=== PATIENT | male | born 1975 | race Caucasian/White ===

== ENCOUNTER 2018-02-04 18:08 | Inpatient (IN) | payer OTHER ==
[~2018-02-04] VITALS: Ht 167.6 cm; Wt 82.6 kg
[~2018-02-04 18:08] MED LIST: Z.0.RESTORIL30 MG PO
[2018-02-04] MEDS ORDERED: MORPHINE SULFATE 4 MG/ML SYR IV STA (18:32)
[2018-02-04] MEDS ORDERED: SODIUM CHLORIDE 0.9% 1000ML 1,000 ML IV STA (18:32)
[2018-02-04] MEDS ORDERED: PROMETHAZINE HCL (IM) 25 MG/ML VIAL IV STA (18:32)
[2018-02-04] MEDS ORDERED: DIATRIZOATE MEGL/DIATRIZOA SOD 30 ML BTL PO ONE (18:36)
[2018-02-04] MEDS ORDERED: PIPER-TAZ 3.375 GM 50 ML IV ONE (18:45)
[2018-02-04 18:49] LABS: BASOPHILS % 0.3 % (0.0-1.0); EOSINOPHILS % 0.2 % (0.0-6.0); HEMATOCRIT 45.6 % (38.2-49.6); HEMOGLOBIN 15.8 g/dL (14.0-18.0); LYMPHOCYTES # (AUTO) 1.4 (1.0-3.2); LYMPHOCYTES % 11.6 % (18.0-39.1); MEAN CORPUSCULAR HEMOGLOBIN 30.9 pg (28-32); MEAN CORPUSCULAR HGB CONC 34.6 g/dL (31-35); MEAN CORPUSCULAR VOLUME 89.2 fL (81-99); MONOCYTES # (AUTO) 0.7 (0.2-0.8); NEUTROPHILS # (AUTO) 9.8 (2.1-6.9); NEUTROPHILS % 81.6 % (38.7-80.0); PLATELET COUNT 191 x10e3/uL (140-360); RED BLOOD COUNT 5.11 x10e6/uL (4.3-5.7); RED CELL DISTRIBUTION WIDTH 12.8 % (11.7-14.4)
[2018-02-04 19:01] LABS: ALANINE AMINOTRANSFERASE 37 IU/L (0-55); ALBUMIN/GLOBULIN RATIO 1.3 (0.8-2.0); ALKALINE PHOSPHATASE 77 IU/L (40-150); ANION GAP 13.9 mmol/L (8-16); BLOOD UREA NITROGEN 12 mg/dL (7-26); BUN/CREATININE RATIO 12 (6-25); CALCIUM 9.5 mg/dL (8.4-10.2); CARBON DIOXIDE 26 mmol/L (22-29); CHLORIDE 101 mmol/L (98-107); CREATININE, SERUM 0.97 mg/dL (0.72-1.25); EST GLOMERULAR FILTRATION RATE > 60 ML/MIN (60-); GLUCOSE 117 mg/dL (74-118); LIPASE 29 U/L (8-78); POTASSIUM 3.9 mmol/L (3.5-5.1); SODIUM 137 mmol/L (136-145)
[2018-02-04 19:38] LABS: BILIRUBIN,URINE 1+ (NEGATIVE); CLARITY,URINE CLEAR (CLEAR); COLOR,URINE YELLOW (YELLOW); KETONES,URINE TRACE (NEGATIVE); LEUKOCYTE ESTERASE ,URINE NEGATIVE (NEGATIVE); NITRITE,URINE NEGATIVE (NEGATIVE); PROTEIN,URINE DIPSTICK NEGATIVE (NEGATIVE); URINE UROBILINOGEN 0.2 mg/dL (0.2 - 1)
[2018-02-04 19:46] LABS: BACTERIA,URINE RARE /HPF; EPITHELIAL CELLS,URINE FEW /LPF; MUCUS,URINE FEW (RARE); RBC,URINE 0-5 /HPF (0-5); WBC,URINE (MAN) 0-5 /HPF (0-5)
--- NOTE | 2018-02-04 19:59 | Diagnostic Imaging Report ---
EXAM: CT Abdomen and Pelvis WITH contrast INDICATION: \S\r/o appy \[id number] \S\1920 COMPARISON: Abdominal CT 08/07/2011. TECHNIQUE: Abdomen and pelvis were scanned utilizing a multidetector helical scanner from the lung base to the pubic symphysis after administration of IV contrast. Coronal and sagittal reformations were obtained. Routine protocol was performed. Scan was performed when during portal venous phase. IV CONTRAST: 100 mL of Omnipaque 300 ORAL CONTRAST: Water COMPLICATIONS: None RADIATION DOSE: Total DLP: 781.64 mGy*cm Estimated effective dose: (DLP x 0.015 x size factor) mSv CTDIvol has been reviewed. It is below the limits set by the Radiation Protocol Committee (RPC). FINDINGS: LINES and TUBES: None.and LOWER THORAX: Filling defects in right lower lobe and right middle lobe, segmental and subsegmental. HEPATOBILIARY: The liver is diffuse hypodense compared to the spleen, consistent with diffuse hepatic diffuse hepatic steatosis. No focal hepatic lesions. No biliary ductal dilation. GALLBLADDER: No radio-opaque stones or sludge. No wall thickening. SPLEEN: No splenomegaly. PANCREAS: No focal masses or ductal dilatation. ADRENALS: No adrenal nodules KIDNEYS/URETERS: Kidneys enhance symmetrically. No hydronephrosis. No cystic or solid mass lesions. No stones. GI TRACT: Circumferential wall thickening and pericolonic/peridiverticular stranding along the sigmoid colon. Punctate focus of air outside a diverticula (series 2 image 71) concerning for microperforation. No brian free air. No abscess. Numerous descending and sigmoid colonic diverticula. No abnormal distention, additional wall thickening, or evidence of bowel obstruction. Appendix is normal. PELVIC ORGANS/BLADDER: Persistent 2.2 cm midline cyst in the region of the seminal vesicles and prostate mid gland/base may represent a Mullerian duct cyst or prostatic utricle cyst. LYMPH NODES: No lymphadenopathy. VESSELS: There is mild atherosclerotic disease in the aorta and major arterial branches. PERITONEUM / RETROPERITONEUM: No free air or fluid. BONES: There are degenerative changes in the lumbar spine, worse at L5-S1. SOFT TISSUES: Fat-containing left inguinal hernia. IMPRESSION: 1. Acute sigmoid colonic diverticulitis. A punctate extraluminal focus of air is concerning for microperforation. No brian free air or abscess. 2. Right middle and lower lobe pulmonary emboli. Consider chest CT to evaluate extent of clot. 3. Hepatic steatosis. Acute findings discussed with Anibal Golden NP, on 02/04/2018 at 7:45 pm. Signed by: DR. Abimael Barrett MD on 02/04/2018 7:55 PM
[2018-02-04] MEDS ORDERED: PROMETHAZINE HCL (IM) 25 MG/ML VIAL IV PRN (20:00)
[2018-02-04] MEDS ORDERED: LEVOFLOXACIN 500MG/D5W 100ML IV SCH (20:00)
[2018-02-04] MEDS ORDERED: CIPROFLOXACIN 400 MG/D5W 200ML 200 ML IV SCH (20:00)
[2018-02-04] MEDS ORDERED: IOPAMIDOL 300MG/ML 100 ML INFUS..BTL IV ONE (20:23)
[2018-02-04] MEDS ORDERED: IOPAMIDOL 370 MG/ML 200 ML INFUS..BTL INJ ONE (20:23)
[2018-02-04] MEDS ORDERED: SODIUM CHLORIDE 0.9% 50ML 50 ML ONE (20:23)
--- OUTSIDE RECORDS SUMMARY | 2018-02-04 20:59 | XMS REPORT ---
Author Author [facility] Address Unknown Phone Unavailable Care Team Providers Care Monument Erector Name Role Phone NATHALIE LEY Unavailable Unavailable Problems This patient has no known problems. Allergies, Adverse Reactions, Alerts This patient has no known allergies or adverse reactions. Medications This patient has no known medications. Results Test Description Test Time Test Comments Text Results Atomic Results Result Comments CT ABDOMEN/PELVIS W [place] [id number] [place] [id number] Patient Name: HANNAH COLEMAN MR #: [id number] : 1975 Age/Sex: 42/M Req #: [id number] Adm Physician: Ordered by: ANIBAL SINHA KAYAK MAKER Report #: [id number] Location: ER Room/Bed: Procedure: [id number] CT/CT ABDOMEN/PELVIS W Exam Date: 02/04/18 Exam Time: 1920 REPORT STATUS: Signed EXAM: CT Abdomen and Pelvis WITH contrast INDICATION: COMPARISON: Abdominal CT 08/07/2011. TECHNIQUE: Abdomen and pelvis were scanned utilizing a multidetector helical scanner from the lung base to the pubic symphysis after administration of IV contrast. Coronal and sagittal reformations were obtained. Routine protocol was performed. Scan was performed when during portal venous phase. IV CONTRAST: 100 mL of Omnipaque 300 ORAL CONTRAST: Water COMPLICATIONS: None RADIATION DOSE: Total DLP: 781.64 mGy*cm Estimated effective dose: (DLP x 0.015 x size factor) mSv CTDIvol has been reviewed. It is below the limits set by the Radiation Protocol Committee (RPC). FINDINGS: LINES and TUBES : None.and LOWER THORAX: Filling defects in right lower lobe and right middle lobe, segmental and subsegmental. HEPATOBILIARY: The liver is diffuse hypodense compared to the spleen, consistent with diffuse hepatic diffuse hepatic steatosis. No focal hepatic lesions. No biliary ductal dilation. GALLBLADDER: No radio-opaque stones or sludge. No wall thickening. SPLEEN: No splenomegaly. PANCREAS: No focal masses or ductal dilatation. ADRENALS: No adrenal nodules KIDNEYS/URETERS : Kidneys enhance symmetrically. No hydronephrosis. No cystic or solid mass lesions. No stones. GI TRACT: Circumferential wall thickening and pericolonic/peridiverticular stranding along the sigmoid colon. Punctate focus of air outside a diverticula (series 2 image 71) concerning for microperforation. No brian free air. No abscess. Numerous descending and sigmoid colonic diverticula. No abnormal distention, additional wall thickening, or evidence of bowel obstruction. Appendix is normal. PELVIC ORGANS/BLADDER: Persistent 2.2 cm midline cyst in the region of the seminal vesicles and prostate mid gland/base may represent a Mullerian duct cyst or prostatic utricle cyst. LYMPH NODES: No lymphadenopathy. VESSELS: There is mild atherosclerotic disease in the aorta and major arterial branches. PERITONEUM / RETROPERITONEUM: No free air or fluid. BONES : There are degenerative changes in the lumbar spine, worse at L5-S1. SOFT TISSUES: Fat-containing left inguinal hernia. IMPRESSION: 1. Acute sigmoid colonic diverticulitis. A punctate extraluminal focus of air is concerning for microperforation. No brian free air or abscess. 2. Right middle and lower lobe pulmonary emboli. Consider chest CT to evaluate extent of clot. 3. Hepatic steatosis. Acute findings discussed with Anibal Sinha NP, on 02/04/2018 at 7:45 pm. Signed by: DR. Abimael Marshall MD on 02/04/2018 7:55 PM Dictated By: ABIMAEL MARSHALL MD 54 Transcribed By: ARSALAN on 02/04/181954 COPY TO: ANIBAL SINHA NP
[2018-02-05] MEDS ORDERED: ACETAMINOPHEN 325 MG TAB PO ONE (01:30)
[2018-02-05] MEDS ORDERED: MORPHINE SULFATE 4 MG/ML SYR IV STA (01:37)
[2018-02-05] MEDS ORDERED: SODIUM CHLORIDE 0.9% 1000ML 1,000 ML IV STA (01:37)
[2018-02-05] MEDS ORDERED: ONDANSETRON HCL INJ 2 MG/ML VIAL IV STA (01:37)
[2018-02-05] MEDS: LEVOFLOXACIN 500MG/D5W 100ML 100 ML IV SCH ×2 (01:39→20:15)
[2018-02-05] MEDS: ENOXAPARIN INJ 80 MG/0.8 ML SYR SC SCH ×3 (01:39→21:00)
[2018-02-05] MEDS ORDERED: MORPHINE SULFATE 2 MG/ML SYR ONE (02:18)
[2018-02-05] MEDS ORDERED: PIPER-TAZ 3.375 GM 100 ML ONE (02:57)
[2018-02-05] MEDS ORDERED: METRONIDAZOLE 500 MG TAB PO SCH (06:00)
[2018-02-05] MEDS: METRONIDAZOLE 500MG/NS 100ML 100 ML IV SCH ×3 (06:33→18:01)
[2018-02-05] MEDS ORDERED: SODIUM CHLORIDE 0.9% 50ML 0 ML ONE (07:25)
[2018-02-05] MEDS ORDERED: IOPAMIDOL 370 MG/ML 200 ML INFUS..BTL INJ ONE ×3 (07:25→20:29)
[2018-02-05 08:04] LABS: BASOPHILS % 0.3 % (0.0-1.0); EOSINOPHILS # (AUTO) 0.1 (0.0-0.4); EOSINOPHILS % 0.9 % (0.0-6.0); HEMATOCRIT 39.6 % (38.2-49.6); HEMOGLOBIN 13.6 g/dL (14.0-18.0); LYMPHOCYTES % 22.4 % (18.0-39.1); MEAN CORPUSCULAR HEMOGLOBIN 31.3 pg (28-32); MEAN CORPUSCULAR HGB CONC 34.3 g/dL (31-35); MONOCYTES # (AUTO) 0.7 (0.2-0.8); MONOCYTES % 7.5 % (4.4-11.3); NEUTROPHILS % 68.7 % (38.7-80.0); PLATELET COUNT 161 x10e3/uL (140-360); RED BLOOD COUNT 4.35 x10e6/uL (4.3-5.7)
[2018-02-05] MEDS: SODIUM CHLORIDE 0.9% 1000ML 1,000 ML IV SCH ×3 (08:17→23:30)
[2018-02-05 08:26] LABS: ANION GAP 10.4 mmol/L (8-16); BLOOD UREA NITROGEN 10 mg/dL (7-26); BUN/CREATININE RATIO 11 (6-25); CALCIUM 8.4 mg/dL (8.4-10.2); CARBON DIOXIDE 29 mmol/L (22-29); CHLORIDE 105 mmol/L (98-107); EST GLOMERULAR FILTRATION RATE > 60 ML/MIN (60-); GLUCOSE 101 mg/dL (74-118); POTASSIUM 4.4 mmol/L (3.5-5.1); SODIUM 140 mmol/L (136-145)
[2018-02-05] MEDS: ONDANSETRON HCL 4 MG ORAL DISINTEGRATING TAB PO PRN (09:56)
[2018-02-05] MEDS: MORPHINE SULFATE 2 MG/ML SYR IV PRN ×4 (09:56→23:47)
[2018-02-05 15:00] VITALS: BP 135/63
[2018-02-05] MEDS: ACETAMINOPHEN 1000 MG/100 ML IV PRN ×2 (15:00→23:46)
[2018-02-05 16:19] VITALS: BP 135/63
[2018-02-05] MEDS: PROMETHAZINE 12.5MG/ NACL 0.9% 50 ML IV PRN (19:36)
[2018-02-05] MEDS ORDERED: SODIUM CHLORIDE 0.9% 50ML 50 ML ONE (20:28)
[2018-02-05 20:33] VITALS: BP 117/63
--- NOTE | 2018-02-05 21:00 | Diagnostic Imaging Report ---
EXAM: CT Chest WITH contrast 02/05/2018 7:30 PM INDICATION: \S\PE \S\[id number] \S\2005 \S\Y COMPARISON: None TECHNIQUE: Chest was scanned utilizing a multidetector helical scanner from the lung apex through the level of the adrenal glands without administration of IV contrast. Coronal and sagittal reformations were obtained. Pulmonary embolism protocol was performed. IV CONTRAST: 100 mL of Isovue-370 COMPLICATIONS: None RADIATION DOSE: Total DLP: 529.63 mGy*cm Estimated effective dose: (DLP x 0.014 x size factor) mSv CTDIvol has been reviewed. It is below the limits set by the Radiation Protocol Committee (RPC). FINDINGS: LINES/ TUBES: None. LUNGS AND AIRWAYS: Filling defect within right lower lobe pulmonary artery there are also filling defects within segmental branches of the right middle lobe pulmonary artery. Right lower lobe consolidation, probably pulmonary infarct. Airways are normal. PLEURA: The pleural spaces are clear. HEART AND MEDIASTINUM: The thyroid gland is normal. No mediastinal, hilar or axillary lymphadenopathy. The heart is normal in size.. There is no pericardial effusion. Main pulmonary artery measures 3.1 cm, suggestive of pulmonary hypertension. UPPER ABDOMEN: Hepatic steatosis. BONES: The visualized bony thorax is within normal limits. SOFT TISSUES: Unremarkable. IMPRESSION: Pulmonary embolism within segmental right lower and middle lobe pulmonary arteries, extending to the subsegmental branches, especially in the right lower lobe with right lower lobe consolidation, likely pulmonary infarct, although underlying atelectasis or pneumonia cannot be entirely excluded. Findings discussed with Dr. Dianna Hanley at 9:22 PM, on 02/05/2018. Signed by: Dr. Shereen Antonio M.D. on 02/05/2018 9:34 PM
[2018-02-05 23:35] VITALS: BP 124/67
[2018-02-06 04:10] VITALS: BP 120/69
[2018-02-06] MEDS: MORPHINE SULFATE 2 MG/ML SYR IV PRN ×2 (04:32→21:35)
[2018-02-06] MEDS: METRONIDAZOLE 500MG/NS 100ML 100 ML IV SCH ×5 (05:55→23:40)
--- NOTE | 2018-02-06 07:00 | Consultation ---
DATE OF CONSULTATION: February 06, 2018 PULMONARY MEDICINE CONSULT REFERRING PHYSICIAN: Dr. Hanley PRIMARY CARE DOCTOR: Dr. Beach HISTORY: Mr. Crandall is a pleasant 42-year-old gentleman with pulmonary embolism. Patient with history of gastrointestinal problems in the past. He has had nonperforated diverticulitis in the past and was treated with conservative therapy. 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 He is very active and is not sedentary when he is not at work. He is not actively smoking. He is not on any herbal medications. He does vape. Patient had recent increase in right lower quadrant pain. He was seen by stomach specialist, who sent him to emergency room. Patient had CT of abdomen and pelvis demonstrating appearance of right lower quadrant diverticulitis, but there was incidental finding of pulmonary embolism there. He had a dedicated CT angiogram showing segmental right lower and middle lobe pulmonary artery emboli extending into subsegmental branches especially in the right lower lobe with right lower lobe consolidation, likely pulmonary infarct. At this point, I am consulted. Patient has some pain over last day, but he also has some nonspecific shortness of breath over last couple of months. PAST MEDICAL HISTORY: Diverticulitis, otherwise none. MEDICATIONS: None. ALLERGIES: NO KNOWN DRUG ALLERGIES. SOCIAL HISTORY: No drugs. Rare alcohol. He smoked from age 18 to 29, 1-pack per day. He works as a food truck caterer as stated, but he does not do interstate nor intrastate, just local in the city area. FAMILY HISTORY: Noncontributory. There is no known venous thromboses in his family. REVIEW OF SYSTEMS: GENERAL: No weight changes. OPHTHALMOLOGIC: No double vision. ENT: No dry mouth. ENDOCRINE: No thyroid disease. PULMONARY: There is no asthma. CARDIAC: No heart attacks. IMMUNOLOGIC: There are no allergies. : No blood in urine. MUSCULOSKELETAL: There is minimal arthritis. PSYCHOLOGIC: No depression. NEUROLOGIC: No seizures. OBJECTIVE: VITAL SIGNS: Afebrile at this time, vitals reviewed per electronic record. GENERAL: In no acute distress, in bed, slightly sleepy. HEENT: Normocephalic, atraumatic. NECK: Supple. Throat midline. LUNGS: Bilateral air entry, limited due to right chest pain. CARDIOVASCULAR: S2, S1 present. No murmurs or rubs. ABDOMEN: Soft, mostly nontender in terms of nonsurgical, but some right lower quadrant discomfort. EXTREMITIES: No clubbing, no cyanosis, there is no edema. INTEGUMENT: No rash, no purpura. LABS: 4.4 potassium, 10 BUN, 0.9 creatinine. 9 white count, 39 hematocrit, 161 platelets. IMPRESSION AND PLAN: 1. Acute pulmonary emboli. 2. Possible pulmonary hypertension, pulmonary artery dimension 33 mm per computerized tomography chest. 3. Suspect hypercoagulable disorder of genetic type. 4. Admit for acute diverticulitis. 5. Fevers due to diverticulitis. Check ultrasound of lower extremities. Check thyroid studies and sedimentation rate and thyroid-stimulating hormone level. Oxygen will be given to alleviate pressures in the lungs. Patient has high indication for outpatient sleep studies. Screening can be done for some genetic hypercoagulable states. Patient is recommended to continue the anticoagulation. He is high risk for surgery at this point, but if surgery becomes an emergency, then he will optimally be bridged with heparin and a filter can be placed if he has lower extremity clots. Will follow along closely. Thank you very much, Dr. Beach and Dr. Hanley for allowing me the chance to participate in the care of Mr. Crandall. Do not hesitate to contact me if I could help in any way. Job#: [id number]
[2018-02-06 07:06] LABS: BASOPHILS % 0.4 % (0.0-1.0); EOSINOPHILS % 0.2 % (0.0-6.0); HEMATOCRIT 41.2 % (38.2-49.6); HEMOGLOBIN 14.1 g/dL (14.0-18.0); LYMPHOCYTES # (AUTO) 1.3 (1.0-3.2); LYMPHOCYTES % 12.4 % (18.0-39.1); MEAN CORPUSCULAR HEMOGLOBIN 31.3 pg (28-32); MEAN CORPUSCULAR HGB CONC 34.2 g/dL (31-35); MEAN CORPUSCULAR VOLUME 91.4 fL (81-99); MONOCYTES # (AUTO) 0.7 (0.2-0.8); MONOCYTES % 6.5 % (4.4-11.3); NEUTROPHILS # (AUTO) 8.7 (2.1-6.9); NEUTROPHILS % 80.1 % (38.7-80.0); PLATELET COUNT 170 x10e3/uL (140-360); RED BLOOD COUNT 4.51 x10e6/uL (4.3-5.7); RED CELL DISTRIBUTION WIDTH 12.8 % (11.7-14.4)
[2018-02-06 07:24] LABS: ANION GAP 13.1 mmol/L (8-16); BLOOD UREA NITROGEN 10 mg/dL (7-26); BUN/CREATININE RATIO 13 (6-25); CALCIUM 8.5 mg/dL (8.4-10.2); CARBON DIOXIDE 24 mmol/L (22-29); CHLORIDE 105 mmol/L (98-107); CREATININE, SERUM 0.79 mg/dL (0.72-1.25); EST GLOMERULAR FILTRATION RATE > 60 ML/MIN (60-); GLUCOSE 90 mg/dL (74-118); POTASSIUM 4.1 mmol/L (3.5-5.1); SODIUM 138 mmol/L (136-145)
[2018-02-06 07:25] VITALS: BP 118/72
[2018-02-06] MEDS: SODIUM CHLORIDE 0.9% 1000ML 1,000 ML IV SCH (07:30)
[2018-02-06 07:37] LABS: HIV 1&2 AB SCREEN NON-REACTIVE (NONREACTIVE)
[2018-02-06 07:50] VITALS: BP 118/72
[2018-02-06] MEDS: ENOXAPARIN INJ 80 MG/0.8 ML SYR SC SCH ×2 (08:15→20:12)
[2018-02-06] MEDS ORDERED: KETOROLAC TROMETHAMINE 30 MG/ML VIAL IV PRN (08:15)
[2018-02-06] MEDS: ACETAMINOPHEN 1000 MG/100 ML IV PRN ×3 (10:00→23:46)
[2018-02-06 11:37] VITALS: BP 139/71
[2018-02-06 15:53] VITALS: BP 136/76
[2018-02-06] MEDS: DEXTROSE 5%/0.45% SOD CHL 1,000 ML IV SCH (17:30)
[2018-02-06 20:00] VITALS: BP 130/60
[2018-02-06] MEDS: MEROPENEM 1 GM VIAL IV SCH (21:03)
[2018-02-06] MEDS ORDERED: MEROPENEM 1GRAM 1 GM in SODIUM CHLORIDE 0.9% 100 ML 100 ML IV SCH (22:00)
[2018-02-06] MEDS: ONDANSETRON HCL 4 MG ORAL DISINTEGRATING TAB PO PRN (22:51)
[2018-02-07] VITALS (7 sets, daily range): BP systolic 112–122; BP diastolic 60–72
[2018-02-07] MEDS: DEXTROSE 5%/0.45% SOD CHL 1,000 ML IV SCH ×3 (03:14→21:14)
[2018-02-07] MEDS: MORPHINE SULFATE 2 MG/ML SYR IV PRN ×5 (03:35→23:02)
[2018-02-07] MEDS: SODIUM CHLORIDE 0.9% 1000ML 1,000 ML IV SCH (04:39)
[2018-02-07] MEDS: MEROPENEM 1 GM VIAL IV SCH ×3 (05:26→20:46)
--- NOTE | 2018-02-07 06:42 | Diagnostic Imaging Report ---
EXAM: ABDOMEN ACUTE SERIES W/PA CXR INDICATION: Perforated diverticulitis COMPARISON: CT of the abdomen and pelvis February 04, 2018 FINDINGS: LINES/TUBES: None LUNGS: Right lower lobe consolidation, likely pulmonary infarct seen on prior CT. Subsegmental atelectasis left lower lobe. PLEURA: No effusions or pneumothorax. HEART AND MEDIASTINUM: Normal size and contour. BOWEL PATTERN: Non-obstructed bowel gas pattern. Oral contrast seen throughout the large bowel to the rectum. BONES AND SOFT TISSUES: Small amount of free air is seen underneath the hemidiaphragms. IMPRESSION: Evidence of pneumoperitoneum underneath the hemidiaphragms consistent with worsening perforated diverticulitis. Findings discussed with patient's nurse Dania 02/07/2018 at 0635 hrs. Right lower lobe consolidation consistent with a pulmonary infarct. Signed by: Dr. Shereen Antonio M.D. on 02/07/2018 6:38 AM
[2018-02-07 07:05] LABS: BASOPHILS % 0.2 % (0.0-1.0); EOSINOPHILS % 0.5 % (0.0-6.0); HEMATOCRIT 39.4 % (38.2-49.6); HEMOGLOBIN 13.6 g/dL (14.0-18.0); LYMPHOCYTES # (AUTO) 0.9 (1.0-3.2); MEAN CORPUSCULAR HEMOGLOBIN 31.5 pg (28-32); MEAN CORPUSCULAR HGB CONC 34.5 g/dL (31-35); MEAN CORPUSCULAR VOLUME 91.2 fL (81-99); MONOCYTES # (AUTO) 0.6 (0.2-0.8); MONOCYTES % 6.9 % (4.4-11.3); NEUTROPHILS % 81.9 % (38.7-80.0); PLATELET COUNT 172 x10e3/uL (140-360); RED BLOOD COUNT 4.32 x10e6/uL (4.3-5.7); RED CELL DISTRIBUTION WIDTH 12.9 % (11.7-14.4)
[2018-02-07] MEDS: METRONIDAZOLE 750MG/NS 150ML 150 ML IV SCH ×4 (07:25→23:10)
[2018-02-07 07:32] LABS: ALANINE AMINOTRANSFERASE 41 IU/L (0-55); ALBUMIN 2.7 g/dL (3.5-5.0); ALBUMIN/GLOBULIN RATIO 0.8 (0.8-2.0); ALKALINE PHOSPHATASE 87 IU/L (40-150); ANION GAP 10.6 mmol/L (8-16); BLOOD UREA NITROGEN 12 mg/dL (7-26); BUN/CREATININE RATIO 16 (6-25); CALCIUM 8.6 mg/dL (8.4-10.2); CARBON DIOXIDE 26 mmol/L (22-29); CHLORIDE 104 mmol/L (98-107); CREATININE, SERUM 0.76 mg/dL (0.72-1.25); EST GLOMERULAR FILTRATION RATE > 60 ML/MIN (60-); GLUCOSE 121 mg/dL (74-118); POTASSIUM 3.6 mmol/L (3.5-5.1); SODIUM 137 mmol/L (136-145)
[2018-02-07] MEDS: ENOXAPARIN INJ 80 MG/0.8 ML SYR SC SCH ×2 (08:30→20:46)
[2018-02-07] MEDS: PROMETHAZINE 12.5MG/ NACL 0.9% 50 ML IV PRN ×2 (09:55→14:10)
--- NOTE | 2018-02-07 14:18 | Progress Note ---
DATE: February 07, 2018 PULMONARY MEDICINE PROGRESS NOTE SUBJECTIVE: Mr. Crandall was seen and examined at bedside. He is having some more chest pain at present. His abdominal pain, however, is slowly decreasing. He is starting to get a little bit of appetite back. He remains on oxygen, although he is wearing it right now on his head. REVIEW OF SYSTEMS: No bleeding. No rash. OBJECTIVE VITAL SIGNS: Afebrile. Vital signs noted per electronic record. GENERAL: In no acute distress, alert and calm. HEENT: Normocephalic, atraumatic. NECK: Supple. Throat midline. LUNGS: Bilateral air entry, a few rare rhonchi. Crackles at the right base. CARDIOVASCULAR: S1 and S2. No murmurs, rubs or gallops. ABDOMEN: Soft, nontender. EXTREMITIES: No clubbing, no cyanosis. There is no edema. INTEGUMENT: No rash, no purpura. LABS: BUN 12, 0.8 creatinine, 14 hemoglobin, 39 hematocrit, platelets 172. IMPRESSION AND PLAN 1. Acute thromboembolic disease. 2. Acute diverticulitis. 3. History of relative immobility on the job. 4. 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 Follow up the thrombophilia pattern panel that we requested. Continue IV antibiotics. The patient remains high risk for surgery at this time and, therefore, medical management should be considered. It is my understanding that the patient may go for outpatient elective surgery according to what he is telling me at a later date. Follow up the thrombophilia mutation panel. Will follow along closely. Job#: [id number]
[2018-02-07] MEDS: ONDANSETRON HCL 4 MG ORAL DISINTEGRATING TAB PO PRN (23:01)
[2018-02-08] VITALS (8 sets, daily range): BP systolic 106–122; BP diastolic 58–78
[2018-02-08] MEDS: SODIUM CHLORIDE 0.9% 1000ML 1,000 ML IV SCH (02:53)
[2018-02-08] MEDS: MORPHINE SULFATE 2 MG/ML SYR IV PRN ×4 (03:05→20:15)
[2018-02-08] MEDS: MEROPENEM 1 GM VIAL IV SCH ×3 (05:50→22:24)
[2018-02-08] MEDS: METRONIDAZOLE 750MG/NS 150ML 150 ML IV SCH ×4 (05:50→23:51)
[2018-02-08] MEDS: ENOXAPARIN INJ 80 MG/0.8 ML SYR SC SCH ×2 (09:00→21:47)
[2018-02-08] MEDS: DEXTROSE 5%/0.45% SOD CHL 1,000 ML IV SCH ×2 (09:00→17:33)
[2018-02-08] MEDS: ONDANSETRON HCL 4 MG ORAL DISINTEGRATING TAB PO PRN ×2 (09:04→20:23)
--- NOTE | 2018-02-08 11:15 | Diagnostic Imaging Report ---
PROCEDURE:ABDOMEN ACUTE SERIES W/PA CXR COMPARISON:Abdominal series 02/07/2018. INDICATIONS:DIVERTICULITIS, RULE OUT PULMONARY EMBOLISM FINDINGS: CHEST: Right lung base atelectasis. No parenchymal mass. No pleural effusion or pneumothorax. No focal consolidation. Normal cardiac silhouette. No mediastinal lymphadenopathy. BOWEL PATTERN: No air-fluid levels. Minimal pneumoperitoneum, decreased since the previous examination. SOFT TISSUES: No abnormal calcifications. Retained oral contrast is present and multiple diverticuli in the descending and sigmoid colon. BONES: No acute abnormality. CONCLUSION: Pneumoperitoneum. Diverticulosis of the descending and sigmoid colon. Dictated by: Wilber Sharp M.D. on 02/08/2018 at 11:17 Electronically approved by: Wilber Sharp M.D. on 02/08/2018 at 11:17
--- NOTE | 2018-02-08 19:13 | Progress Note ---
DATE: February 08, 2018 PULMONARY MEDICINE PROGRESS NOTE SUBJECTIVE: Mr. Crandall was seen and examined at bedside. He had 2 L per minute of oxygen on at the time. The patient was noted to take it off transiently. He went to the restroom and had a syncope episode. He was under observation by the who caught him. This happened after a bowel movement. REVIEW OF SYSTEMS: No headaches. No rash. OBJECTIVE VITALS: Afebrile. Vital signs are noted per electronic record. GENERAL: No acute distress. Alert and calm. HEENT: Normocephalic and atraumatic. NECK: Supple. Throat midline. LUNGS: Bilateral air entry. Few rare rhonchi. CARDIOVASCULAR: S1 and S2. No murmurs, rubs or gallops. ABDOMEN: Soft and nontender. EXTREMITIES: No clubbing. No cyanosis. No edema. INTEGUMENT: No rash. No purpura. IMPRESSION 1. Pulmonary embolism. 2. Acute diverticulitis. 3. Possible genetic abnormality, thrombophilia. 4. Syncope, presumed pulmonary hypertension. Continue oxygen. I have counseled the patient the importance of this. I have counseled once again for need for predominant bed rest, but will let him get to bedside commode if supervised. Continue Lovenox. Continue IV antibiotics for the diverticulitis. Job#: [id number] SUMMER
[2018-02-08] MEDS: ACETAMINOPHEN 1000 MG/100 ML IV PRN (21:48)
[2018-02-09 00:07] VITALS: BP 120/81
[2018-02-09] MEDS: MORPHINE SULFATE 2 MG/ML SYR IV PRN ×2 (02:29→21:05)
[2018-02-09] MEDS: ONDANSETRON HCL 4 MG ORAL DISINTEGRATING TAB PO PRN ×2 (02:30→21:05)
[2018-02-09] MEDS: DEXTROSE 5%/0.45% SOD CHL 1,000 ML IV SCH ×2 (04:15→14:15)
[2018-02-09] MEDS: ACETAMINOPHEN 1000 MG/100 ML IV PRN (04:50)
[2018-02-09 05:15] VITALS: BP 139/99
[2018-02-09] MEDS: MEROPENEM 1 GM VIAL IV SCH ×3 (06:17→22:00)
[2018-02-09] MEDS: METRONIDAZOLE 750MG/NS 150ML 150 ML IV SCH ×4 (06:35→23:45)
[2018-02-09 08:06] VITALS: BP 135/70
[2018-02-09] MEDS: ENOXAPARIN INJ 80 MG/0.8 ML SYR SC SCH ×2 (09:00→20:53)
[2018-02-09 12:17] VITALS: BP 131/77
--- NOTE | 2018-02-09 15:32 | Progress Note ---
DATE: February 09, 2018 PULMONARY MEDICINE PROGRESS NOTE SUBJECTIVE: Mr. Crandall was seen and examined at bedside. He was able to go to restroom today. He did not have any syncope. He did this despite the recommendation for supervision privileges for out of bed only and mainly for bedrest. Patient remains on blood thinners. Abdomen continues to get softer with less pain. REVIEW OF SYSTEMS: No headaches. No bleeding. OBJECTIVE VITALS: Afebrile. Vital signs are noted per electronic record. GENERAL: No acute distress. Alert and calm. HEENT: Normocephalic, atraumatic. NECK: Supple. Throat midline. LUNGS: Bilateral air entry. Few rhonchi, especially in the right base. CARDIOVASCULAR: S1 and S2. No murmurs, rubs, or gallops. ABDOMEN: Soft and nontender. EXTREMITIES: No clubbing. No cyanosis. There is no edema. INTEGUMENT: No rash. No purpura. IMPRESSION 1. Acute pulmonary embolism. 2. Pulmonary hypertension. 3. Acute diverticulitis. 4. Syncope. 5. Free air in the abdomen, pneumoperitoneum. PLAN: Continue follow up closely. Continue antibiotics. Continue blood thinners. Continue restricting for mainly bedrest. Supervision only for bedside commode. We will follow along closely. Do antibiotics for this severe infection. Job#: [id number] FABIEN
[2018-02-09 16:52] VITALS: BP 138/83
[2018-02-09 20:00] VITALS: BP 137/76
[2018-02-10] VITALS (7 sets, daily range): BP systolic 120–137; BP diastolic 72–92
[2018-02-10] MEDS ORDERED: ACETAMINOPHEN 1000 MG/100 ML IV PRN (02:30)
[2018-02-10] MEDS: MEROPENEM 1 GM VIAL IV SCH ×3 (05:35→21:53)
[2018-02-10] MEDS: DEXTROSE 5%/0.45% SOD CHL 1,000 ML IV SCH (05:43)
[2018-02-10] MEDS: METRONIDAZOLE 750MG/NS 150ML 150 ML IV SCH ×4 (05:43→23:45)
[2018-02-10 07:39] LABS: BASOPHILS % 0.6 % (0.0-1.0); EOSINOPHILS # (AUTO) 0.2 (0.0-0.4); EOSINOPHILS % 2.5 % (0.0-6.0); HEMATOCRIT 41.7 % (38.2-49.6); HEMOGLOBIN 14.2 g/dL (14.0-18.0); LYMPHOCYTES # (AUTO) 1.4 (1.0-3.2); LYMPHOCYTES % 21.3 % (18.0-39.1); MEAN CORPUSCULAR HGB CONC 34.1 g/dL (31-35); MONOCYTES # (AUTO) 0.6 (0.2-0.8); MONOCYTES % 8.8 % (4.4-11.3); NEUTROPHILS # (AUTO) 4.3 (2.1-6.9); NEUTROPHILS % 66.3 % (38.7-80.0); PLATELET COUNT 216 x10e3/uL (140-360); RED BLOOD COUNT 4.58 x10e6/uL (4.3-5.7); RED CELL DISTRIBUTION WIDTH 12.8 % (11.7-14.4)
[2018-02-10 08:09] LABS: ALANINE AMINOTRANSFERASE 27 IU/L (0-55); ALBUMIN 2.6 g/dL (3.5-5.0); ALBUMIN/GLOBULIN RATIO 0.8 (0.8-2.0); ALKALINE PHOSPHATASE 60 IU/L (40-150); ANION GAP 11.3 mmol/L (8-16); BLOOD UREA NITROGEN 11 mg/dL (7-26); BUN/CREATININE RATIO 17 (6-25); CALCIUM 8.7 mg/dL (8.4-10.2); CARBON DIOXIDE 30 mmol/L (22-29); CHLORIDE 101 mmol/L (98-107); CREATININE, SERUM 0.65 mg/dL (0.72-1.25); EST GLOMERULAR FILTRATION RATE > 60 ML/MIN (60-); GLUCOSE 99 mg/dL (74-118); POTASSIUM 3.3 mmol/L (3.5-5.1); SODIUM 139 mmol/L (136-145)
[2018-02-10] MEDS: ENOXAPARIN INJ 80 MG/0.8 ML SYR SC SCH ×2 (09:00→21:05)
[2018-02-10] MEDS ORDERED: POTASSIUM CHLORIDE 10 MEQ TABCR PO ONE (12:15)
[2018-02-10] MEDS ORDERED: POTASSIUM CHLORIDE 20 MEQ TAB CR PO ONE (12:30)
--- NOTE | 2018-02-10 14:25 | Progress Note ---
DATE: February 10, 2018 PULMONARY MEDICINE PROGRESS NOTE SUBJECTIVE: Mr. Crandall was seen and examined at bedside. He continues to have slow progress, but good progress. He remains on full liquid diet with surgeon. Bowels are moving. He is having rumbling sounds in his stomach. Regarding his breathing, he has had no more syncope episodes. No more presyncope or dizziness episodes. Patient is getting up to bedside commode only and to bed. Patient had 3 bowel movements. REVIEW OF SYSTEMS: No headaches. No rash. OBJECTIVE VITALS: Afebrile. Vital signs are noted per electronic record. GENERAL: No acute distress. Alert and calm in bed. HEENT: Normocephalic, atraumatic. NECK: Supple. Throat midline. LUNGS: Bilateral air entry. Decreased crackles to the right base. CARDIOVASCULAR: S1 and S2. No murmurs, rubs, or gallops. ABDOMEN: Soft and nontender. EXTREMITIES: No clubbing. No cyanosis. There is no edema. INTEGUMENT: No rash. No purpura. IMPRESSION 1. Acute pulmonary embolism. 2. Syncopal episode a couple of days ago without recurrence. 3. Acute diverticulitis. 4. Partial treatment, nonadherence. 5. Suspect genetic thrombophilia. PLAN: Prothrombin and factor II DNA analysis are pending. The patient will continue at this time on anticoagulation. Continue bed rest today. If he continues to do well, we may chose to escalate his activity tomorrow under observation with therapy and staff. Check echo on him to see how his heart is doing. Continue antibiotics for diverticulitis per other physicians. Will change to one of the novel anticoagulants upon discharge as there is no need to switch earlier. Will follow along closely. Job#: [id number]
[2018-02-11] VITALS (7 sets, daily range): BP systolic 119–143; BP diastolic 65–87
[2018-02-11] MEDS: MEROPENEM 1 GM VIAL IV SCH ×3 (05:30→21:25)
[2018-02-11] MEDS: METRONIDAZOLE 750MG/NS 150ML 150 ML IV SCH ×3 (05:40→18:52)
[2018-02-11 07:05] LABS: BASOPHILS # (AUTO) 0.1 (0.0-0.1); BASOPHILS % 0.7 % (0.0-1.0); EOSINOPHILS # (AUTO) 0.2 (0.0-0.4); EOSINOPHILS % 2.7 % (0.0-6.0); HEMATOCRIT 42.1 % (38.2-49.6); HEMOGLOBIN 14.2 g/dL (14.0-18.0); LYMPHOCYTES # (AUTO) 1.8 (1.0-3.2); LYMPHOCYTES % 24.4 % (18.0-39.1); MEAN CORPUSCULAR HEMOGLOBIN 30.8 pg (28-32); MEAN CORPUSCULAR HGB CONC 33.7 g/dL (31-35); MEAN CORPUSCULAR VOLUME 91.3 fL (81-99); MONOCYTES # (AUTO) 0.8 (0.2-0.8); MONOCYTES % 10.2 % (4.4-11.3); NEUTROPHILS # (AUTO) 4.5 (2.1-6.9); NEUTROPHILS % 61.6 % (38.7-80.0); PLATELET COUNT 230 x10e3/uL (140-360); RED BLOOD COUNT 4.61 x10e6/uL (4.3-5.7); RED CELL DISTRIBUTION WIDTH 12.6 % (11.7-14.4)
[2018-02-11 07:32] LABS: ALANINE AMINOTRANSFERASE 28 IU/L (0-55); ALBUMIN 2.9 g/dL (3.5-5.0); ALBUMIN/GLOBULIN RATIO 0.9 (0.8-2.0); ALKALINE PHOSPHATASE 69 IU/L (40-150); ANION GAP 13.4 mmol/L (8-16); BLOOD UREA NITROGEN 12 mg/dL (7-26); BUN/CREATININE RATIO 18 (6-25); CALCIUM 8.9 mg/dL (8.4-10.2); CARBON DIOXIDE 29 mmol/L (22-29); CHLORIDE 101 mmol/L (98-107); CREATININE, SERUM 0.66 mg/dL (0.72-1.25); EST GLOMERULAR FILTRATION RATE > 60 ML/MIN (60-); GLUCOSE 92 mg/dL (74-118); POTASSIUM 4.4 mmol/L (3.5-5.1); SODIUM 139 mmol/L (136-145)
[2018-02-11] MEDS: ENOXAPARIN INJ 80 MG/0.8 ML SYR SC SCH (08:44)
--- NOTE | 2018-02-11 14:02 | Progress Note ---
DATE: February 11, 2018 PULMONARY MEDICINE PROGRESS NOTE SUBJECTIVE: Mr. Crandall was seen and examined at bedside. Patient continues to have issues regarding , feeling restless and being in bed excessively. Echo was done yesterday, which did not show blatant right-sided pulmonary hypertension although the RV diastolic diameter was 3.4 cm. LVEF was normal. Patient is eating well. She is having bowel movements. REVIEW OF SYSTEMS: No headaches, no rash. OBJECTIVE VITAL SIGNS: Afebrile. Vital signs noted per electronic record. GENERALLY: No acute distress, alert and calm. HEENT: Normocephalic, atraumatic. NECK: Supple. Throat midline. LUNGS: Bilateral air entry, clear. CARDIOVASCULAR: S1 and S2. No murmurs, rubs or gallops. ABDOMINAL: Soft, nontender. EXTREMITIES: No clubbing, no cyanosis. There is no edema. INTEGUMENT: No rash. No purpura. IMPRESSION AND PLAN 1. Acute diverticulitis, perforated. 2. Pulmonary embolism, acute. 3. Syncope, pulmonary hypertension. 4. Probable genetic thrombophilia. At this time will continue current treatment. We await the thrombophilia panel to be resulted. Continue anticoagulation. Would liberalize his movement. Follow up closely. Follow up final echo results. Job#: [id number] EV
[2018-02-12] VITALS (7 sets, daily range): BP systolic 114–138; BP diastolic 67–83
[2018-02-12] MEDS: METRONIDAZOLE 750MG/NS 150ML 150 ML IV SCH ×3 (00:30→12:00)
[2018-02-12] MEDS: MEROPENEM 1 GM VIAL IV SCH (06:23)
[2018-02-12] MEDS ORDERED: XARELTO 15 MG PO (12:53)
[2018-02-12] MEDS ORDERED: XARELTO20 MG PO (12:53)
--- NOTE | 2018-02-12 13:46 | Progress Note ---
DATE: February 12, 2018 PULMONARY MEDICINE PROGRESS NOTE SUBJECTIVE: Mr. Crandall was seen and examined at bedside. He does seem to have steady progress. He was able to move around yesterday without any dyspnea. No presyncope. Able to use the restroom and is having bowel movements. He is eating a full liquid diet well. REVIEW OF SYSTEMS: No headaches. No rash. OBJECTIVE VITALS: Afebrile. Vital signs noted per electronic record. GENERAL: No acute distress. Alert and calm. HEENT: Normocephalic and atraumatic. NECK: Supple. Throat midline. LUNGS: Bilateral air entry. Few rare rhonchi, mostly clear. CARDIOVASCULAR: S1 and S2. No murmurs, rubs or gallops. ABDOMEN: Soft and nontender. EXTREMITIES: No clubbing. No cyanosis. There is no edema. INTEGUMENT: No rash. No purpura. IMPRESSION AND PLAN 1. Acute pulmonary embolism. 2. Syncope. 3. Acute diverticulitis. 4. Probable genetic thrombophilia. Continue current treatment at this time. We wish for the oxygen to be continued to offload some of the pulmonary hypertension. The patient will still have continued blood thinners. I have written a script and converted to long-acting blood thinners after he is discharged. The patient furthermore will continue to be walking around until I start to advance his physical exertion slowly. Will follow along closely. Job#: [id number] SUMMER
[2018-02-12] MEDS ORDERED: ENOXAPARIN INJ 80 MG/0.8 ML SYR SC SCH (21:00)
[2018-02-12] MEDS: METRONIDAZOLE 500 MG TAB PO SCH (22:28)
[2018-02-13] VITALS: BP 126/68
[2018-02-13 00:05] VITALS: BP 126/68
[2018-02-13 04:00] VITALS: BP 119/67
[2018-02-13 07:39] LABS: BASOPHILS # (AUTO) 0.1 (0.0-0.1); BASOPHILS % 0.7 % (0.0-1.0); EOSINOPHILS # (AUTO) 0.2 (0.0-0.4); EOSINOPHILS % 3.4 % (0.0-6.0); HEMATOCRIT 42.8 % (38.2-49.6); HEMOGLOBIN 14.5 g/dL (14.0-18.0); LYMPHOCYTES # (AUTO) 1.8 (1.0-3.2); LYMPHOCYTES % 25.4 % (18.0-39.1); MEAN CORPUSCULAR HEMOGLOBIN 30.9 pg (28-32); MEAN CORPUSCULAR HGB CONC 33.9 g/dL (31-35); MEAN CORPUSCULAR VOLUME 91.3 fL (81-99); MONOCYTES # (AUTO) 0.6 (0.2-0.8); MONOCYTES % 8.9 % (4.4-11.3); NEUTROPHILS # (AUTO) 4.3 (2.1-6.9); NEUTROPHILS % 61.2 % (38.7-80.0); PLATELET COUNT 260 x10e3/uL (140-360); RED BLOOD COUNT 4.69 x10e6/uL (4.3-5.7); RED CELL DISTRIBUTION WIDTH 12.6 % (11.7-14.4)
[2018-02-13 07:57] LABS: ALANINE AMINOTRANSFERASE 27 IU/L (0-55); ALBUMIN 2.9 g/dL (3.5-5.0); ALBUMIN/GLOBULIN RATIO 0.9 (0.8-2.0); ALKALINE PHOSPHATASE 59 IU/L (40-150); ANION GAP 12.4 mmol/L (8-16); BLOOD UREA NITROGEN 15 mg/dL (7-26); BUN/CREATININE RATIO 19 (6-25); CALCIUM 9.3 mg/dL (8.4-10.2); CARBON DIOXIDE 30 mmol/L (22-29); CHLORIDE 102 mmol/L (98-107); CREATININE, SERUM 0.78 mg/dL (0.72-1.25); EST GLOMERULAR FILTRATION RATE > 60 ML/MIN (60-); GLUCOSE 104 mg/dL (74-118); POTASSIUM 4.4 mmol/L (3.5-5.1); SODIUM 140 mmol/L (136-145)
[2018-02-13 08:32] VITALS: BP 119/82
[2018-02-13] MEDS: METRONIDAZOLE 500 MG TAB PO SCH (08:37)
[2018-02-13] MEDS ORDERED: LEVOFLOXACIN 500 MG TAB PO SCH (09:00)
[2018-02-13] MEDS ORDERED: RIVAROXABAN 15 MG TABLET PO SCH (09:00)
[2018-02-13 12:05] VITALS: BP 124/69
--- NOTE | 2018-02-13 13:53 | Progress Note ---
DATE: February 13, 2018 PULMONARY MEDICINE PROGRESS NOTE SUBJECTIVE: Mr. Crandall was seen and examined at bedside. He continues to have steady progress. His diet was escalated, and he was tolerating the diet. He can walk around without any presyncope. I have counseled him on the risks and benefits of alternative anticoagulation that he can chose from, and he prefers the novel anticoagulants. REVIEW OF SYSTEMS: No headaches. No chest pain. OBJECTIVE VITALS: Afebrile. Vital signs noted per electronic record. GENERAL: No acute distress. Alert and calm. HEENT: Normocephalic and atraumatic. NECK: Supple. LUNGS: Bilateral air entry. CARDIOVASCULAR: S1 and S2. ABDOMEN: Soft. EXTREMITIES: No edema. INTEGUMENT: No rash. IMPRESSION AND PLAN 1. Acute pulmonary embolism. 2. Syncope, pulmonary hypertension. 3. Acute diverticulitis, perforated. 4. Treat for hereditary thrombophilia. Follow up the genetic thrombophilia screen. Will switch to Xarelto. Will stop Lovenox. The patient will have continued antibiotics for diverticulitis. Will follow up as an outpatient. Job#: [id number]
== END 2018-02-13 12:24 | disposition home or self-care (01) | DRG 391 ==
LOC: ER 18:08 → ERHOLD 20:56 → MED/SURG3 02-05 14:18 → MED/SURG 02-12 20:13
DX: K57.20 Diverticulitis of large intestine with perforation and abscess without bleeding (principal); I26.99 Other pulmonary embolism without acute cor pulmonale; D68.69 Other thrombophilia; K76.0 Fatty (change of) liver, not elsewhere classified; E87.6 Hypokalemia; K21.9 Gastro-esophageal reflux disease without esophagitis; I27.20 Pulmonary hypertension, unspecified; Z91.19 Patient's noncompliance with other medical treatment and regimen; K66.8 Other specified disorders of peritoneum
CPT/HCPCS: 36415; 71260; 74022; 74177; 80048; 80053; 81001; 81241; 81400; 83690; 84443; 85025; 85303; 85306; 87390; 93306; 93970; 96361; 96367; 96372; 96374; 96375; 96376; 99284; G0433; G0435; J1650; J1885; J1956; J2185; J2270; J2543; J2550; J7030; Q9967

== ENCOUNTER → 2018-02-27 | Outpatient (CLI) | payer OTHER ==
[~2018-02-27] MED LIST changes: +DIATRIZOATE MEGL/DIATRIZOA SOD 30 ML BTL PO ONE; +IOPAMIDOL 370 MG/ML 200 ML INFUS..BTL INJ ONE; +SODIUM CHLORIDE 0.9% 50ML 50 ML ONE; +XARELTO 15 MG PO; +XARELTO20 MG PO
[2018-02-27 10:28] LABS: BASOPHILS % 0.5 % (0.0-1.0); EOSINOPHILS # (AUTO) 0.1 (0.0-0.4); EOSINOPHILS % 1.8 % (0.0-6.0); HEMATOCRIT 44.9 % (38.2-49.6); HEMOGLOBIN 15.1 g/dL (14.0-18.0); LYMPHOCYTES # (AUTO) 1.6 (1.0-3.2); LYMPHOCYTES % 28.3 % (18.0-39.1); MEAN CORPUSCULAR HEMOGLOBIN 30.6 pg (28-32); MEAN CORPUSCULAR HGB CONC 33.6 g/dL (31-35); MEAN CORPUSCULAR VOLUME 90.9 fL (81-99); MONOCYTES # (AUTO) 0.5 (0.2-0.8); MONOCYTES % 9.1 % (4.4-11.3); NEUTROPHILS # (AUTO) 3.3 (2.1-6.9); NEUTROPHILS % 60.1 % (38.7-80.0); PLATELET COUNT 207 x10e3/uL (140-360); RED BLOOD COUNT 4.94 x10e6/uL (4.3-5.7); RED CELL DISTRIBUTION WIDTH 12.8 % (11.7-14.4)
[2018-02-27 10:38] LABS: BILIRUBIN,URINE NEGATIVE (NEGATIVE); CLARITY,URINE CLEAR (CLEAR); COLOR,URINE AMBER (YELLOW); KETONES,URINE NEGATIVE (NEGATIVE); LEUKOCYTE ESTERASE ,URINE TRACE (NEGATIVE); NITRITE,URINE NEGATIVE (NEGATIVE); PROTEIN,URINE DIPSTICK NEGATIVE (NEGATIVE); URINE UROBILINOGEN 0.2 mg/dL (0.2 - 1)
--- NOTE | 2018-02-27 11:50 | Diagnostic Imaging Report ---
PROCEDURE: CT ABDOMEN AND PELVIS WITH CONTRAST TECHNIQUE: The abdomen and pelvis were scanned utilizing a multidetector helical scanner from the diaphragm to the lesser trochanter after the IV administration of 100 cc of Isovue 370 and the oral administration of Gastrografin. Coronal and sagittal multiplanar reformations were obtained. COMPARISON: 02/04/2018, CT scan of the chest 02/05/2018. INDICATIONS: DIVERTICULITIS FINDINGS: LOWER THORAX: Unchanged segmental consolidation in the right lower lobe. Segmental pulmonary embolus has improved though persists as seen on series 2 image 3. HEPATOBILIARY: No focal hepatic lesions. No biliary ductal dilatation. SPLEEN: No splenomegaly. PANCREAS: No focal masses or ductal dilatation. ADRENALS: No adrenal nodules. KIDNEYS/URETERS: No hydronephrosis, stones, or solid mass lesions. PELVIC ORGANS/BLADDER: The urinary bladder is unremarkable. Stable midline prostatic cystic structure. PERITONEUM / RETROPERITONEUM: No ascites. No brian pneumoperitoneum. LYMPH NODES: Multiple mildly prominent right lower quadrant mesenteric lymph nodes are unchanged. No pelvic sidewall or retroperitoneal lymphadenopathy. VESSELS: The abdominal aorta, major branch vessels, and iliac arterial systems are well-visualized and patent. Multiple renal arteries perfuse each kidney. Portal vein, splenic vein, and central superior mesenteric vein are patent. GI TRACT: Short segment sigmoid diverticulitis persists with interval increase in adjacent inflammatory-phlegmonous changes. No brian perforation or drainable fluid collection. Reactive wall thickening of several loops of adjacent ileum is also unchanged. No evidence of bowel obstruction. BONES AND SOFT TISSUES: No focal soft tissue abnormalities. Fat-containing left inguinal hernia. Calcified injection granuloma in the subcutaneous fat of the right gluteal region. No osseous destructive lesions. Degenerative disc changes of L5-S1. IMPRESSION: Persistent sigmoid diverticulitis with slight interval progression of surrounding inflammatory-phlegmonous changes. As before, there is no brian perforation or drainable fluid collection. Evolving segmental consolidation or infarct in the right lower lobe, with interval improvement in partially visualized segmental pulmonary embolus. Dictated by: Chace Goodrich M.D. on 02/27/2018 at 11:52 Electronically approved by: Chace Goodrich M.D. on 02/27/2018 at 11:52
== END ==
LOC: CT 10:02
PROVIDERS: ATTEND Internal Medicine Gastroenterology
CPT/HCPCS: 36415; 74177; 81003; 85025; Q9967

== ENCOUNTER → 2018-07-08 | Outpatient (CLI) | payer OTHER ==
[~2018-07-08] MED LIST changes: -DIATRIZOATE MEGL/DIATRIZOA SOD 30 ML BTL PO ONE; -IOPAMIDOL 370 MG/ML 200 ML INFUS..BTL INJ ONE; -SODIUM CHLORIDE 0.9% 50ML 50 ML ONE
== END ==
LOC: RAD 16:24
PROVIDERS: ATTEND Internal Medicine Critical Care Medicine
DX: I26.99 Other pulmonary embolism without acute cor pulmonale (principal); D68.59 Other primary thrombophilia; G47.33 Obstructive sleep apnea (adult) (pediatric); K57.92 Diverticulitis of intestine, part unspecified, without perforation or abscess without bleeding
CPT/HCPCS: 93306

== ENCOUNTER → 2020-03-26 | Outpatient (CLI) | payer OTHER ==
[2020-03-26 16:18] LABS: ALANINE AMINOTRANSFERASE 30 IU/L (0-55); ALBUMIN/GLOBULIN RATIO 1.4 (0.8-2.0); ALKALINE PHOSPHATASE 76 IU/L (40-150); ANION GAP 11.7 mmol/L (8-16); BLOOD UREA NITROGEN 10 mg/dL (7-26); BUN/CREATININE RATIO 12 (6-25); CALCIUM 8.9 mg/dL (8.4-10.2); CARBON DIOXIDE 25 mmol/L (22-29); CHLORIDE 104 mmol/L (98-107); CREATININE, SERUM 0.85 mg/dL (0.72-1.25); EST GLOMERULAR FILTRATION RATE > 60 ML/MIN (60-); POTASSIUM 3.7 mmol/L (3.5-5.1); SODIUM 137 mmol/L (136-145)
[2020-03-26 17:12] LABS: GLUCOSE 125 mg/dL (74-118)
== END ==
LOC: LAB 15:04
PROVIDERS: ATTEND Internal Medicine Critical Care Medicine
DX: K57.92 Diverticulitis of intestine, part unspecified, without perforation or abscess without bleeding (principal); D68.59 Other primary thrombophilia; I26.99 Other pulmonary embolism without acute cor pulmonale; G47.33 Obstructive sleep apnea (adult) (pediatric)
CPT/HCPCS: 36415; 80053

== ENCOUNTER → 2020-09-21 | Outpatient (CLI) | payer OTHER ==
[2020-09-21 17:23] LABS: ALANINE AMINOTRANSFERASE 29 IU/L (0-55); ALBUMIN 4.4 g/dL (3.5-5.0); ALBUMIN/GLOBULIN RATIO 1.6 (0.8-2.0); ALKALINE PHOSPHATASE 68 IU/L (40-150); ANION GAP 13.7 mmol/L (8-16); BLOOD UREA NITROGEN 15 mg/dL (7-26); BUN/CREATININE RATIO 17 (6-25); CALCIUM 9.1 mg/dL (8.4-10.2); CARBON DIOXIDE 26 mmol/L (22-29); CHLORIDE 104 mmol/L (98-107); CREATININE, SERUM 0.87 mg/dL (0.72-1.25); EST GLOMERULAR FILTRATION RATE > 60 ML/MIN (60-); GLUCOSE 81 mg/dL (74-118); POTASSIUM 3.7 mmol/L (3.5-5.1); SODIUM 140 mmol/L (136-145)
== END ==
LOC: LAB 16:49
PROVIDERS: ATTEND Internal Medicine Critical Care Medicine
DX: K57.92 Diverticulitis of intestine, part unspecified, without perforation or abscess without bleeding (principal); D68.59 Other primary thrombophilia; I26.99 Other pulmonary embolism without acute cor pulmonale; G47.33 Obstructive sleep apnea (adult) (pediatric)
CPT/HCPCS: 36415; 80053

== ENCOUNTER → 2022-07-21 | Outpatient (CLI) | payer OTHER ==
[2022-07-21 14:41] LABS: ALBUMIN 4.2 g/dL (3.5-5.0); ALBUMIN/GLOBULIN RATIO 1.3 (0.8-2.0); ANION GAP 15.1 mmol/L (8-16); CALCIUM 9.2 mg/dL (8.4-10.2); CREATININE, SERUM 1.01 mg/dL (0.72-1.25); POTASSIUM 4.1 mmol/L (3.5-5.1)
== END ==
LOC: LAB 13:51
PROVIDERS: ATTEND Internal Medicine Critical Care Medicine
DX: I26.99 Other pulmonary embolism without acute cor pulmonale (principal); D68.59 Other primary thrombophilia; K57.92 Diverticulitis of intestine, part unspecified, without perforation or abscess without bleeding; G47.33 Obstructive sleep apnea (adult) (pediatric)
CPT/HCPCS: 36415; 80053

== ENCOUNTER → 2022-12-06 | Outpatient (CLI) | payer OTHER ==
[~2022-12-06] MED LIST changes: +TRAZODONE HCL100 MG PO; +TRAZODONE HCL50 MG PO
== END ==
LOC: RAD 13:39
PROVIDERS: ATTEND Internal Medicine Critical Care Medicine
DX: I26.99 Other pulmonary embolism without acute cor pulmonale (principal); K57.92 Diverticulitis of intestine, part unspecified, without perforation or abscess without bleeding; G47.33 Obstructive sleep apnea (adult) (pediatric); D68.59 Other primary thrombophilia
CPT/HCPCS: 93306

== ENCOUNTER → 2022-12-16 | Day surgery (SDC) | payer MEDICARE, OTHER ==
[2022-12-11 12:00] LABS: BASOPHILS % 0.6 % (0.0-1.0); EOSINOPHILS # (AUTO) 0.1 (0.0-0.4); EOSINOPHILS % 1.6 % (0.0-6.0); HEMATOCRIT 44.1 % (38.2-49.6); HEMOGLOBIN 15.1 g/dL (14.0-18.0); LYMPHOCYTES # (AUTO) 1.9 (1.0-3.2); LYMPHOCYTES % 27.5 % (18.0-39.1); MEAN CORPUSCULAR HEMOGLOBIN 31.3 pg (28-32); MEAN CORPUSCULAR HGB CONC 34.2 g/dL (31-35); MEAN CORPUSCULAR VOLUME 91.3 fL (81-99); MONOCYTES # (AUTO) 0.4 (0.2-0.8); MONOCYTES % 6.3 % (4.4-11.3); NEUTROPHILS # (AUTO) 4.5 (2.1-6.9); NEUTROPHILS % 63.7 % (38.7-80.0); PLATELET COUNT 153 x10e3/uL (140-360); RED BLOOD COUNT 4.83 x10e6/uL (4.3-5.7); RED CELL DISTRIBUTION WIDTH 12.5 % (11.7-14.4)
[~2022-12-16] MED LIST changes: +FENTANYL CITRATE/PF 100MCG/2 ML INJ ONE; +LIDOCAINE HCL 2% LOCAL INJ 5 ML SDV VIAL INJ ONE; +MIDAZOLAM HCL 2 MG/2 ML VIAL ONE; +POVIDONE IODINE 0.05% 0.05 % ML PO ONE; +PROPOFOL IV EMULSION 10 MG/ML 20 ML VIAL ONE
[2022-12-16 09:25] VITALS: BP 115/84
[2022-12-16 09:56] LABS: BILIRUBIN,DIRECT 0.5 mg/dL (0.0-0.5)
== END | disposition home or self-care (01) ==
LOC: OR 06:15
PROVIDERS: ATTEND Internal Medicine Gastroenterology
DX: K21.9 Gastro-esophageal reflux disease without esophagitis (principal); D12.3 Benign neoplasm of transverse colon; K62.1 Rectal polyp; K29.70 Gastritis, unspecified, without bleeding; K22.10 Ulcer of esophagus without bleeding; K44.9 Diaphragmatic hernia without obstruction or gangrene; K57.30 Diverticulosis of large intestine without perforation or abscess without bleeding; Z98.0 Intestinal bypass and anastomosis status; K64.8 Other hemorrhoids; G47.33 Obstructive sleep apnea (adult) (pediatric); E66.9 Obesity, unspecified; Z01.810 Encounter for preprocedural cardiovascular examination; Z01.812 Encounter for preprocedural laboratory examination; Z79.02 Long term (current) use of antithrombotics/antiplatelets; Z79.899 Other long term (current) drug therapy; Z86.718 Personal history of other venous thrombosis and embolism
CPT/HCPCS: 36415 ×2; 43239; 45380; 45385; 80076; 85025; 93005; C9113; J2001; J2250; J2704; J3010

== ENCOUNTER → 2023-01-25 | Outpatient (CLI) | payer OTHER ==
[~2023-01-25] MED LIST changes: -FENTANYL CITRATE/PF 100MCG/2 ML INJ ONE; -LIDOCAINE HCL 2% LOCAL INJ 5 ML SDV VIAL INJ ONE; -MIDAZOLAM HCL 2 MG/2 ML VIAL ONE; -POVIDONE IODINE 0.05% 0.05 % ML PO ONE; -PROPOFOL IV EMULSION 10 MG/ML 20 ML VIAL ONE
== END ==
LOC: US 07:49
PROVIDERS: ATTEND Internal Medicine Gastroenterology
DX: K76.0 Fatty (change of) liver, not elsewhere classified (principal)
CPT/HCPCS: 76705

== ENCOUNTER → 2024-10-10 | Outpatient (REF) | payer OTHER ==
[2024-10-10 09:30] LABS: ANION GAP 17.2 mmol/L (8-16); CALCIUM 9.6 mg/dL (8.4-10.2); CREATININE, SERUM 0.87 mg/dL (0.72-1.25); POTASSIUM 4.2 mmol/L (3.5-5.1)
== END ==
LOC: LAB 08:52
PROVIDERS: ATTEND Internal Medicine Critical Care Medicine
DX: I26.99 Other pulmonary embolism without acute cor pulmonale (principal); D68.59 Other primary thrombophilia
CPT/HCPCS: 36415; 80048